=== PATIENT | female | born 1950 | race Caucasian/White ===

== ENCOUNTER → 2021-09-05 | Outpatient (CLI) | payer MEDICARE ==
[~2021-09-05] MED LIST: AMLO1TAB25; ATOR40TA75 PO; BRIM1OPD OU; CHLO125TA PO; D-101000 PO; HUMI40KI2 SC; LOSA100T45; METF-838 PO; SPIR-10 PO; TIMO0.5S39 OU
== END ==
LOC: M LABSMTC 10:17
PROVIDERS: ATTEND Anesthesiology
DX: Z01.818 Encounter for other preprocedural examination (principal); Z11.52 Encounter for screening for COVID-19

== ENCOUNTER 2021-09-09 08:38 | Day surgery (SDC) | payer MEDICARE ==
[~2021-09-09] VITALS: Ht 167.6 cm; Wt 107.9 kg
[~2021-09-09 08:38] MED LIST changes: +LIDOCAINE 2% 100MG/5ML SDV (FOR ANES.) As Ordered ONE; +NS 1,000 ML IV ONE; +propofoL 200 MG/20 ML VIAL As Ordered ONE
[2021-09-09] MEDS ORDERED: propofoL 200 MG/20 ML VIAL As Ordered ONE (09:51)
[2021-09-09 10:30] VITALS: BP 99/56
== END 2021-09-09 10:48 | disposition home or self-care (01) ==
LOC: M OPP 08:38
PROVIDERS: ATTEND Internal Medicine Gastroenterology
DX: Z12.11 Encounter for screening for malignant neoplasm of colon (principal); D12.8 Benign neoplasm of rectum; K63.5 Polyp of colon; I10 Essential (primary) hypertension; E11.9 Type 2 diabetes mellitus without complications; Z79.1 Long term (current) use of non-steroidal anti-inflammatories (NSAID); Z79.4 Long term (current) use of insulin; Z79.899 Other long term (current) drug therapy

== ENCOUNTER 2023-01-26 08:54 | Day surgery (SDC) | payer MEDICARE ==
[~2023-01-26] VITALS: Ht 167.6 cm; Wt 107.0 kg
[~2023-01-26 08:54] MED LIST changes: -AMLO1TAB25; +AMLO1TAB25 PO; -LIDOCAINE 2% 100MG/5ML SDV (FOR ANES.) As Ordered ONE; -LOSA100T45; +LOSA100T46 PO; -propofoL 200 MG/20 ML VIAL As Ordered ONE
[2023-01-26] MEDS ORDERED: propofoL 200 MG/20 ML VIAL As Ordered ONE ×2 (10:28→10:36)
[2023-01-26 10:46] VITALS: TEMP 97.7
[2023-01-26 11:00] VITALS: BP 117/70; O2SAT 94
== END 2023-01-26 11:06 | disposition home or self-care (01) ==
LOC: M OPP 08:54
PROVIDERS: ATTEND Internal Medicine Gastroenterology
DX: Z86.010 Personal history of colon polyps (principal); D12.3 Benign neoplasm of transverse colon; D12.8 Benign neoplasm of rectum; K57.30 Diverticulosis of large intestine without perforation or abscess without bleeding; K64.8 Other hemorrhoids; E11.9 Type 2 diabetes mellitus without complications; Z79.02 Long term (current) use of antithrombotics/antiplatelets; Z79.620 Long term (current) use of immunosuppressive biologic; Z79.84 Long term (current) use of oral hypoglycemic drugs; Z79.899 Other long term (current) drug therapy; Z88.8 Allergy status to other drugs, medicaments and biological substances